=== PATIENT | female | born 1945 | race Caucasian/White ===

== ENCOUNTER 2020-01-05 20:09 | Emergency (ER) | payer MEDICARE, BC, MEDICAID, SELFPAY ==
--- NOTE | ~2020-01-05 | CT_ITS ---
EXAMINATION: CT brain wo con INDICATION: Headache COMPARISON: None TECHNIQUE: Standard unenhanced head CT. The dose-length product (DLP) was 605.33 mGy-cm. The mA was a djusted according to patient size. Iterative reconstruction technique was employed. FINDINGS: There is no acute intraparenchymal hemorrhage. No evidence of mass lesion. No evidence of a cute infarction. 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 An infarction is seen in t he left temporal lobe which is new since the prior examination but has a chronic appearance. There is mild periventricular and subcortical hypodensity probably related to small vessel ischemic disease. There is mild prominence of the sulci and ventricles related to cerebral atrophy. Intracranial calcif ied cerebral atherosclerosis is noted. There are no extra-axial collections. There is no mass effect or midline shift. The orbits and soft tissues are unremarkable. The visualized sinuses and mastoid a ir cells are well aerated. IMPRESSION: 1. Areas of prior infarction without acute intracranial abnormality. 2. Age related findings. Reviewed, dictated and finalized at location A.
--- NOTE | 2020-01-05 20:00 | ED.FALL ---
HPI - Fall General Chief Complaint: Fall Stated Complaint: fall History of Present Illness HPI Narrative: BIBEMS from half-way for a fall. She was found on the ground next to her bed. She has severe dementia and she is not able to provide any history. She does not have any complaints at this time. She was noted to have multiple old appearing skin tears by EMS. Related Data Allergies Allergy/AdvReac Type Severity Reaction Status Date / Time codeine Allergy Severe Confusion Verified 12/29/16 13:06 CEPTACANE Allergy Mild Uncoded 11/23/10 17:22 OXYCODONE HCL Allergy Unknown Uncoded 12/29/16 13:06 Review of Systems Review of Systems: ROS unobtainable: Yes unobtainable due to mental status PMFSH Past Medical History Medical History (Updated 01/05/20 @ 21:41 by Narciso Edgar MD) Dementia Exam Const: General: healthy appearing, no acute distress and alert Nutritional Appearance: well nourished Other: Oriented to self only HENMT: Head: normal to inspection General nose exam: Normal nares present Face and sinus: normal facial exam Eyes: Pupils: Equal, round and reactive pupils present Neck: Other: No tenderness Chest: Chest palpation & inspection: no tenderness Resp: Effort & Inspection: normal respiratory effort Auscultation: clear to auscultation bilaterally Cardio: Rate: regular rate Rhythm: regular rhythm GI: Other: Soft, NTND Skin: General skin exam: normal color Rashes: no rashes Wounds: wounds noted (Skin tear to left elbow) Neuro: General: moves all extremities Speech: normal speech Extrem: Other: nontender Course Vital Signs Vital signs: Vital Signs Temperature 36.8 C 01/05/20 20:18 Pulse Rate 67 01/05/20 20:18 Respiratory Rate 18 01/05/20 20:18 Blood Pressure 118/52 L 01/05/20 20:18 Pulse Oximetry 99 01/05/20 20:18 Temperature 36.8 C 01/05/20 20:18 Pulse Rate 70 01/05/20 21:55 Respiratory Rate 20 01/05/20 21:55 Blood Pressure 122/76 01/05/20 21:55 Pulse Oximetry 99 01/05/20 21:55 MDM - Fall MDM Narrative Medical decision making narrative: Multiple minor chronic appearing injuries on exam. No acute findings. Head CT negative. will plan to discharge. Medical Records Attestation: I reviewed the patient's medical records. Imaging Data Radiologist's impression: ITS Impressions Head CT 01/05/20 20:39 IMPRESSION: 1. Areas of prior infarction without acute intracranial abnormality. 2. Age related findings. Discharge Plan Discharge Clinical Impression: Dementia Qualifiers: Dementia type: unspecified type Dementia behavioral disturbance: without behavioral disturbance Qualified Code(s): F03.90 - Unspecified dementia without behavioral disturbance Fall Qualifiers: Encounter type: initial encounter Qualified Code(s): W19.XXXA - Unspecified fall, initial encounter Patient Disposition: NH Long-Term/Asst Living Condition: Stable Instructions: Fall Prevention (ED) Prescriptions: No Action lorazepam 0.5 mg tablet 0.5 mg PO .COMPLEX PRN (Reason: anxiety) Qty: 60 RF: 0 Follow-up/Referrals: Brody Londono MD [Primary Care Provider] -
[2020-01-05 20:18] VITALS: BP 118/52; PULSE 67; RESP 18; TEMP 36.8; O2SAT 99
--- NOTE | 2020-01-05 21:45 | PC.NURSE ---
report called to senior care. yud[facility] called for transport
--- NOTE | 2020-01-05 21:50 | PC.NURSE ---
Addendum entered by Viviana Johnston 01/06/20 00:07: Called [facility] for status...ETA [id number] due to Emergency calls exceeding availability. Addendum entered by Viviana Johnston 01/05/20 22:47: [facility] called with updated ETA [phone] Original Note: Called [facility] for transport back to [place]...ETA 2200.
[2020-01-05 21:55] VITALS: BP 122/76; PULSE 70; RESP 20; O2SAT 99
== END 2020-01-06 00:47 ==
PROVIDERS: Emergency Provider Emergency Medicine; PCP Family Medicine
DX: F03.90 Unspecified dementia, unspecified severity, without behavioral disturbance, psychotic disturbance, mood disturbance, and anxiety (principal); W19.XXXA Unspecified fall, initial encounter
CPT/HCPCS: 70450; 99284

== ENCOUNTER 2021-05-08 14:00 | Emergency (ER) | payer MEDICARE, MEDICAID, SELFPAY ==
[2021-05-08] VITALS (14 sets, daily range): BP systolic 34–119; BP diastolic 21–88; PULSE 0–110; RESP 14–24; TEMP 36.8; O2SAT 62–94
--- NOTE | ~2021-05-08 | XR_ITS ---
EXAMINATION: XR chest ET placement EXAM DATE: 05/08/2021 14:37 INDICATION: Endotracheal tube placement TECHNIQUE: Portable AP frontal chest x-ray was obtained. Comparison is made to prior examination from 12/29/2016. FINDINGS: Left lateral costophrenic sulcus was excluded from examination. Endotracheal tube and nasog astric tube are both in position. The lungs are clear. There are no pleural effusions. The cardiome diastinal silhouette is within normal limits. There is no pneumothorax suspected. There is aortic a rteriosclerosis. IMPRESSION: Tubes in position. No acute cardiopulmonary findings. Reviewed, dictated and finalized at location B.
--- NOTE | ~2021-05-08 | XR_ITS ---
XR abdomen NG/feed tube insert INDICATION: Evaluate position. TECHNIQUE: Limited KUB perform for evaluating NG tube . COMPARISON: No prior studies for comparison. FINDINGS: NG tube tip in the stomach. Visualized bowel gas pattern is unremarkable.There are surgica l changes of the lumbosacral spine. Moderate gastric distention. IMPRESSION: 1: NG tube tip in the stomach. Reviewed, dictated and finalized at location A.
--- NOTE | 2021-05-08 14:35 | PC.NURSE ---
Family at bedside, MD Sanchez speaking with family regarding goals of care/code status. Patient becoming more hypotensive. Preparing norepinephrine drip.
[2021-05-08 14:39] LABS: Basophils Absolute Auto 0.1 K/mm3 (0.0-0.1); Basophils Percent Auto 0.5 % (0.2-1.2); Hematocrit 36.2 % (37.0-47.0); Hemoglobin 11.6 g/dL (12.0-15.0); Immature Granulocyte Absolute 1.28 K/mm3 (0.00-0.031); Immature Granulocyte Percent A 6.4 % (0-0.5); Immature Platelet Fraction Pct 17.8 % (0.9-11.2); Lymphocytes Absolute Auto 1.04 K/mm3 (0.9-3.2); Lymphocytes Percent Auto 5.2 % (18.3-44.2); Mean Corpuscular Hemoglobin 34.8 pg (26-34); Mean Corpuscular Volume 108.7 fl (80-100); Monocytes Absolute Auto 0.8 K/mm3 (0.1-0.6); Monocytes Percent Auto 4.1 % (2.6-8.5); Neutrophils Absolute Auto 16.6 K/mm3 (1.3-6.7); Neutrophils Percent Auto 83.8 % (45.5-73.1); Nucleated Red Blood Cells Perc 0.1 % (0.0-0.2); Platelet Count Result 68 k/mm3 (150-375); Red Blood Count 3.33 M/mm3 (4.2-5.4); Red Cell Distribution Width 14.1 % (11.5-14.5); White Blood Count 19.9 K/mm3 (4.5-10.0)
--- NOTE | 2021-05-08 14:42 | PC.NURSE ---
Norepinephrine infusion started at 2 mcg/min, BP 35 systolic.
[2021-05-08 14:47] LABS: Anion Gap 13 mmol/L (8-16); Blood Urea Nitrogen 36 mg/dL (7-17); Calcium 8.6 mg/dL (8.4-10.2); Carbon Dioxide 20 mmol/L (22-30); Chloride 109 mmol/L (98-107); Estimated Glomerular Filt Rate 21; Glucose 169 mg/dL (65-110); Potassium 3.9 mmol/L (3.4-5.0); Sodium 142 mmol/L (137-145)
[2021-05-08 14:49] LABS: INR 1.6; Prothrombin Time 18.9 Seconds (11.1-14.7)
--- NOTE | 2021-05-08 14:49 | PC.NURSE ---
RT stopped bagging patient at this time per family wishes at bedside. Family wishes to make patient comfortable.
--- NOTE | 2021-05-08 15:06 | ED.AMS ---
HPI - Altered Mental Status General Chief Complaint: Altered Mental Status Stated Complaint: UNRESPONSIVE Time Seen by Provider: 05/08/21 14:07 Source: EMS Mode of arrival: EMS Limitations: clinical condition History of Present Illness HPI narrative: 75-year-old female History of dementia Arrives per EMS for being unresponsive Per paramedics patient had been possibly less active and less responsive last night and then at some point shortly before they were called had been found to be unresponsive The only additional history that he got was that there had been a large somewhat malodorous stool but it has been described as light brown and not melanotic EMS reported a blood pressure of 50/30, unresponsiveness, required BVM respiratory assist, blood sugar was over 100, O2 sats on arrival were only in the 70s Related Data Allergies Allergy/AdvReac Type Severity Reaction Status Date / Time codeine Allergy Severe Confusion Verified 12/29/16 13:06 CEPTACANE Allergy Mild Uncoded 11/23/10 17:22 OXYCODONE HCL Allergy Unknown Uncoded 12/29/16 13:06 Review of Systems Review of Systems: ROS unobtainable: Yes unobtainable due to mental status [facility] Past Medical History Medical History (Updated 05/08/21 @ 15:30 by Chris Sanchez MD) Anxiety disorder, unspecified Dementia Exam Const: Other: Elderly, frail, ill-appearing, being bagged by EMS HENMT: Head: no contusions and no hematomas Other: Dry mouth Eyes: Other: Pupils 3, not reactive Neck: Other: Distended neck veins breath sounds present with bagging Resp: Other: Breath sounds present only with bagging, little or no respiratory effort Cardio: Rate: tachycardic Other: Heart sounds faint GI: Inspection: non-distended GI Palp: Yes Soft to palpation Skin: General skin exam: pallor Neuro: Other: Did initially briefly open her eyes with a hard sternal rub, no motor responses, GCS 4 Extrem: General: no pedal edema Course Course Emergency Course: See the resuscitation notes She received fluids, although given her JVD it did not necessarily seem like preload is going to be her main problem Bedside ultrasound showed cardiac activity but grossly impaired contractility, IVC was not flattened but was collapsible She received push dose pressors in preparation for intubation She was intubated without difficulty or complication Post intubation her pressures again were drifting downward and she received another push pressor dose Her 3 daughters arrived and after discussion with them they just wanted her to be comfortable and did not want her actually hooked to the ventilator or to have access for additional critical care meds obtained Ventilation was stopped and she was sedated and then extubated and asystole ensued approximately 15 minutes later Vital Signs Vital signs: Vital Signs Pulse Rate 100 05/08/21 14:42 Respiratory Rate 20 05/08/21 14:42 Blood Pressure 38/24 L 05/08/21 14:42 Pulse Oximetry 83 L 05/08/21 14:42 Pulse Rate 45 L 05/08/21 15:05 Respiratory Rate 18 05/08/21 14:47 Blood Pressure 45/21 L 05/08/21 15:05 Pulse Oximetry 83 L 05/08/21 14:42 Procedures Intubation Intubation #1: Intubation Date: 05/08/21 Intubation Time: 14:40 sedative: Etomidate Mg Given: 15 paralytic: Rocuronium Mg Given: 50 Laryngoscope: Mahamed Tube Size (cm): 7.0 Method of Intubation: orotracheal Number of Attempts: 1 Tube Secured Depth (cm): 22 Tube Secured Location: lips Tube Placement Confirmation: visualized tube passing through cords, equal breath sounds bilaterally and confirmation by capnometry Patient Tolerated Procedure: no complications MDM - Altered Mental Status Lab Data Result diagrams: 05/08/21 14:30 05/08/21 14:30 Labs: Lab Results 05/08/21 05/08/21 05/08/21 Range/Units 14:30 14:30 14:30 WBC
[2021-05-08 15:08] LABS: Troponin I 0.116 ng/mL (0.000-0.034)
--- NOTE | 2021-05-08 15:15 | PC.NURSE ---
Due to patient's critical status, here is outline for medical care provided. RN's Melissa Guerrero, and Polina present at bedside throughout patient's treatment, along with MD Sanchez. 14:14 -- 100 mcg phenylephrine given 14:15 -- 15 mg etomidate, 50 of rocc for RSI 14:17 -- intubated by MD Sanchez with RT and RN's at bedside; 7.0 tube, 21 at lip, bilateral breath sounds present 14:18 -- 100 mcg phenylephrine given, BP 78/54 14:21 -- difficulty finding pulse, weak and thready, MD Sanchez performing bedside cardiac US 14:28 -- BP 119/88 14:34 -- 100 mcg phenylephrine given 14:42 -- norepinephrine started while MD discussing goals with family 14:49 -- norepinephrine stopped, 5mg Versed and 1mg dilaudid given by Melissa RN for pt comfort 14:52 -- patient extubated by MD Sanchez 15:10 -- time of called by MD Sanchez
--- NOTE | 2021-05-08 15:48 | PC.NURSE ---
Per Cedric Desir, cyber ops planner, patient to be released to home and this patient is not a cyber ops planner's case.
--- NOTE | 2021-05-08 15:59 | PC.NURSE ---
[facility] Albertina at [facility] states she will be in contact regarding patient being candidate for donation.
--- NOTE | 2021-05-08 16:17 | PC.NURSE ---
per [facility], Brittany Foote, not a candidate for donation.
== END 2021-05-08 18:45 | disposition expired ==
PROVIDERS: Emergency Provider Emergency Medicine; PCP Family Medicine
DX: I46.9 Cardiac arrest, cause unspecified (principal); F03.90 Unspecified dementia, unspecified severity, without behavioral disturbance, psychotic disturbance, mood disturbance, and anxiety; N18.9 Chronic kidney disease, unspecified; F41.9 Anxiety disorder, unspecified
CPT/HCPCS: 31500; 36415; 80048; 84484; 85025; 85055; 85610; 85730; 92950; 96374; 96375; 99285; J1170; J2250; J7030; J7050; J7060